=== PATIENT | male | born 1950 | race Caucasian/White ===

== ENCOUNTER 2019-01-02 09:51 | Emergency (ER) | payer MEDICARE, OTHER ==
[~2019-01-02] VITALS: Ht 190.5 cm; Wt 117.9 kg
[~2019-01-02 09:51] MED LIST: AMITRIPTYLINE H25 MG PO; ASPIRIN325 MG PO; ATENOLOL50 MG PO; BACTRIM DS TAB1 EACH PO; CILOSTAZOL50 MG PO; DAILY MULTIPLE1 EACH PO; DOXYCYCLINE HY100 MG PO; DUTASTERIDE0.5 MG PO; ECOTRIN325 MG PO; ENALAPRIL MALEA20 MG PO; FENOFIBRATE160 MG PO; FLOMAX0.4 MG PO; GENTAMICIN SULF15 G2 TP; HYDROCODON-ACE1 EA10 PO; LANTUS SOL100 UNIT/1 SQ; LIDOCAINE35.44 GM TOP; NEURONTIN100 MG PO; NORCO 10-325 T1 EACH PO; NORCO 5-325 TA1 EACH PO; NORCO 7.5-3251 EACH PO; NOVOLOG FL100 UNIT/1 SUB-Q; NOVOLOG100 UNITS/ IV; OMEPRAZOLE20 M1 PO; PERCOCET 5-3251 EACH PO; PLAVIX75 MG PO; SENNA8.6 MG PO; SENOKOT-S TABL1 EACH PO
--- OUTSIDE RECORDS SUMMARY | 2019-01-02 09:54 | XMS ---
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 Martita VISIT COUNT (12 MO.) 1 Samantha Pelayo M.C[facility] 2 LUZMA Sanon TOTAL 3 NOTE: Visits indicate total known visits. ED/UCC VISIT TRACKING (12 MO.) 01/02/2019 09:51 LUZ[facility] Gan [place] TYPE: Emergency COMPLAINT: - ABD PAIN/URINE PROBLEM 12/26/2018 15:40 [facility] Barbra FELIPE TYPE: Emergency DIAGNOSES: - Anemia, unspecified - Type 2 diabetes mellitus with foot ulcer - Disorder of urea cycle metabolism, unspecified - Altered mental status - Hypomagnesemia - Non-pressure chronic ulcer of other part of left foot with necrosis of muscle - Altered mental status, unspecified 12/24/2018 23:47 LUZMA Valerio TYPE: Emergency COMPLAINT: - DIABETIC ISSUE DIAGNOSES: - Essential (primary) hypertension - Other exterminator (current) drug therapy - alf (current) use of insulin - Disorientation, unspecified - Type 2 diabetes mellitus without complications - Altered mental status, unspecified - Allergy status to other drugs, medicaments and biological substances status - Nicotine dependence, unspecified, uncomplicated INPATIENT VISIT TRACKING (12 MO.) 12/26/2018 15:40 [facility] Adam FELIPE TYPE: Medical Surgical DIAGNOSES: - Metabolic encephalopathy - Benign prostatic hyperplasia without lower urinary tract symptoms - Type 2 diabetes mellitus with diabetic polyneuropathy - Personal history of transient ischemic attack (TIA), and cerebral infarction without residual deficits - Encounter for palliative care - Other specified counseling - Type 2 diabetes mellitus without complications - Anemia, unspecified - Hypomagnesemia - Non-pressure chronic ulcer of other part of left foot with necrosis of muscle - Essential (primary) hypertension - alf (current) use of insulin - Local infection of the skin and subcutaneous tissue, unspecified - Type 2 diabetes mellitus with foot ulcer - Disorder of urea cycle metabolism, unspecified - Cellulitis of left lower limb - Type 2 diabetes mellitus with other skin complications - Acute kidney failure, unspecified - Sepsis, unspecified organism - Altered mental status, unspecified [email or web address]
[2019-01-02] MEDS ORDERED: VITAMIN D-32000 UNIT PO (10:25)
== END 2019-01-02 12:32 | disposition home or self-care (01) ==
LOC: ED 09:51
PROC: 0T9B70Z Drainage of Bladder with Drainage Device, Via Natural or Artificial Opening (ICD-10-PCS; principal; 2019-01-02)
DX: R33.9 Retention of urine, unspecified (principal); E11.8 Type 2 diabetes mellitus with unspecified complications; I10 Essential (primary) hypertension; E78.00 Pure hypercholesterolemia, unspecified; F17.200 Nicotine dependence, unspecified, uncomplicated; Z89.611 Acquired absence of right leg above knee; Z88.8 Allergy status to other drugs, medicaments and biological substances; Z91.09 Other allergy status, other than to drugs and biological substances; Z79.4 Long term (current) use of insulin; Z79.899 Other long term (current) drug therapy
CPT/HCPCS: 51702; 99283-25